=== PATIENT | male | born 1980 | race African-American/Black ===

== ENCOUNTER 2020-07-06 09:45 | Emergency (ER) | payer OTHER ==
[~2020-07-06] VITALS: Ht 182.9 cm; Wt 90.7 kg
[2020-07-06] MEDS ORDERED: ASPirin 81 mg TAB PO ONE (10:15)
[2020-07-06 10:31] LABS: Urine WBC None Seen /hpf (0 - 3)
[2020-07-06 10:38] LABS: Urine Bacteria NONE SEEN /hpf (None Seen); Urine Blood Negative /uL (Negative); Urine Specific Gravity 1.018 (1.001-1.035)
[2020-07-06 10:40] LABS: Basophils # (auto) 0.1 10 ^3/uL (0-0.2); Basophils % (auto) 2.2 % (0.0-2.0); Eosinophils # (auto) 0.1 10 ^3/uL (0-0.8); Eosinophils % (auto) 1.9 % (0.0-7.0); Hematocrit 45.5 % (41.0-53.0); Hemoglobin 15.7 g/dL (13.5-17.5); Lymphocytes % (auto) 42.1 % (10.0-50.0); Mean Corpuscular Hemoglobin 31.2 pg (28.0-32.0); Mean Corpuscular Hgb Conc. 34.5 g/dL (32.0-36.0); Mean Corpuscular Volume 90.5 fL (80.0-100.0); Monocytes # (auto) 0.4 10 ^3/uL (0-1.3); Monocytes % (auto) 9.6 % (0.0-12.0); Neutrophils # (auto) 2.1 10 ^3/uL (1.6-8.6); Neutrophils % (auto) 44.2 % (37.0-80.0); Nucleated Red Blood Cells % 0.1 %; Platelet Count (auto) 223 10^3/uL (140-450); Red Blood Cells 5.03 10^6/uL (4.5-5.90); Red Cell Distribution Width 13.6 % (11.8-14.3); White Blood Cell 4.7 10^3/uL (4.4-10.8)
[2020-07-06 11:02] LABS: Anion Gap 3 (5-15); Blood Urea Nitrogen 13 mg/dL (7-18); Calcium 8.7 mg/dL (8.5-10.1); Carbon Dioxide 29 mmol/L (21-32); Chloride 106 mmol/L (98-107); Glucose 106 mg/dL (74-106); Potassium 4.2 mmol/L (3.5-5.1); Sodium 138 mmol/L (136-145)
[2020-07-06 11:07] LABS: Alanine Aminotransferase 56 U/L (16-61); Alkaline Phosphatase 80 U/L (45-117); Aspartate Aminotransferase 34 U/L (15-37); BUN/Creatinine Ratio 11.1; Bilirubin, Total 0.6 mg/dL (0.2-1.0); GFR African American 89 mL/min; GFR Non-African American 74 mL/min
[2020-07-06] MEDS ORDERED: cloNIDine HCL 0.1 MG TAB ONE (16:47)
[2020-07-06 16:51] VITALS: BP 189/109
[2020-07-06] MEDS ORDERED: cloNIDine HCL 0.1 MG TAB PO ONE (17:00)
== END 2020-07-06 18:33 | disposition home or self-care (01) ==
LOC: ER 09:45
DX: I16.0 Hypertensive urgency (principal); F17.210 Nicotine dependence, cigarettes, uncomplicated
CPT/HCPCS: 36415; 71045; 80053; 81001; 84484; 85025

== ENCOUNTER 2020-11-07 11:51 | Emergency (ER) | payer OTHER ==
[~2020-11-07] VITALS: Ht 182.9 cm; Wt 115.7 kg
[2020-11-07 13:02] VITALS: BP 159/94
== END 2020-11-07 13:06 | disposition home or self-care (01) ==
LOC: ER 11:51
DX: I10 Essential (primary) hypertension (principal); F17.210 Nicotine dependence, cigarettes, uncomplicated; Z76.0 Encounter for issue of repeat prescription

== ENCOUNTER 2020-12-05 13:59 | Emergency (ER) | payer OTHER ==
[~2020-12-05] VITALS: Ht 185.4 cm; Wt 106.6 kg
[2020-12-05 14:05] VITALS: BP 135/92
[2020-12-05] MEDS ORDERED: HYDROcodone-ACET 10/325MG TAB PO ONE (14:45)
== END 2020-12-05 15:59 | disposition home or self-care (01) ==
LOC: ER 13:59
DX: S93.691A Other sprain of right foot, initial encounter (principal); I10 Essential (primary) hypertension; F17.210 Nicotine dependence, cigarettes, uncomplicated; X58.XXXA Exposure to other specified factors, initial encounter; Y93.67 Activity, basketball; Y92.89 Other specified places as the place of occurrence of the external cause; Y99.8 Other external cause status
CPT/HCPCS: 29515; 73610

== ENCOUNTER 2021-06-28 20:51 | Emergency (ER) | payer OTHER ==
[~2021-06-28] VITALS: Ht 182.9 cm; Wt 120.2 kg
[2021-06-28] MEDS ORDERED: cloNIDine HCL 0.1 MG TAB PO ONE (21:15)
[2021-06-28 23:50] VITALS: BP 132/89
== END 2021-06-29 00:57 | disposition home or self-care (01) ==
LOC: ER 20:51
DX: I16.0 Hypertensive urgency (principal); I10 Essential (primary) hypertension; F17.210 Nicotine dependence, cigarettes, uncomplicated

== ENCOUNTER 2023-09-22 12:52 | Emergency (ER) | payer BC, OTHER ==
[~2023-09-22] VITALS: Ht 185.4 cm; Wt 122.8 kg
[2023-09-22 13:21] VITALS: PULSE 91; RESP 16; O2SAT 99
[2023-09-22] MEDS: cloNIDine HCL 0.1 MG TAB PO ONE (13:23)
[2023-09-22 14:00] LABS: Hematocrit 48.8 % (41.0-53.0); Hemoglobin 16.9 g/dL (13.5-17.5); Mean Corpuscular Hemoglobin 30.9 pg (28.0-32.0); Mean Corpuscular Hgb Conc. 34.7 g/dL (32.0-36.0); Mean Corpuscular Volume 88.8 fL (80.0-100.0); Red Blood Cells 5.49 10^6/uL (4.5-5.90); Red Cell Distribution Width 13.7 % (11.8-14.3)
[2023-09-22 14:05] LABS: Basophils % (manual) 0 (0.0-2.0); Blast Cells 0; Eosinophils % (manual) 0 (0-7); Promyelocytes % 0; Reactive Lymphocytes 0
[2023-09-22 14:27] LABS: Alanine Aminotransferase 48 U/L (7-40); Albumin 4.6 g/dL (3.2-4.8); Alkaline Phosphatase 85 U/L (46-116); Anion Gap 6 (5-15); Aspartate Aminotransferase 31 U/L (13-40); BUN/Creatinine Ratio 6.8 (10.0-20.0); Blood Urea Nitrogen 9 mg/dL (9-23); Calcium 9.3 mg/dL (8.7-10.4); Carbon Dioxide 27 mmol/L (20-30); Chloride 102 mmol/L (98-107); Glucose 108 mg/dL (74-106); Potassium 4.8 mmol/L (3.5-5.1); Sodium 135 mmol/L (136-145)
[2023-09-22 14:28] LABS: Bilirubin, Total 0.5 mg/dL (0.2-1.0); Total Protein 8.1 g/dL (5.7-8.2)
[2023-09-22 14:47] LABS: Band Neutrophils % (manual) 14; Lymphocytes % (manual) 7 (10.0-50.0); Metamyelocytes % 6; Monocytes % (manual) 9 (0-12); Myelocytes % 9; Platelet Estimate Adequate
[2023-09-22 15:26] LABS: Urine Bacteria NONE SEEN /hpf (None Seen); Urine Blood Negative /uL (Negative); Urine Clarity Clear (Clear); Urine Color Colorless (Yellow); Urine Protein, UAD 1+ (Negative); Urine Urobilinogen Normal (Negative); Urine WBC <1 /hpf (0 - 3)
[2023-09-22] MEDS: HYDROcodone-ACET 10/325MG TAB PO ONE (15:35)
[2023-09-22] MEDS: amLODIPine BESYLATE 5 MG TAB PO ONE (16:12)
[2023-09-22] MEDS: ACETAMINOPHEN 500 MG TAB PO ONE (16:46)
[2023-09-22 17:11] VITALS: BP 112/70; PULSE 82; RESP 15; TEMP 99.9; O2SAT 97
== END 2023-09-22 17:12 | disposition home or self-care (01) ==
LOC: ER 12:52
DX: I16.0 Hypertensive urgency (principal); F17.210 Nicotine dependence, cigarettes, uncomplicated; Z79.899 Other long term (current) drug therapy
CPT/HCPCS: 36415; 70450; 71045; 80053; 81001; 85007; 85027; 93005

== ENCOUNTER 2025-02-11 04:09 | Inpatient (IN) | payer BC ==
[~2025-02-11] VITALS: Ht 182.9 cm; Wt 126.5 kg
[2025-02-11] MEDS: hydrOXYzine 25 MG TAB or CAP PO ONE (04:25)
--- NOTE | 2025-02-11 04:32 | ED.PDOC ---
History of Present Illness HPI Comments 44 y/o M presents with c/c HTN. Patient endorses on checking his blood pressure at home and noticing it being elevated at 211/111 after being unable to sleep for over the past 2x days, due to jitteriness, anxiety, and intermittent headaches. Upon arrival to ED triage, patient had a left and right blood press ure cuff measurement of 192/131 and 205/120, respectively. Patient reports on not taking his prescribed Amlodipine for over the past 4x months. He denies having any chest pain, shortness of breath, dizziness, or further associated symptoms. Chief Complaint: High Blood Pressure Time Seen by MD: 04:15 Primary Care Provider: UNKNOWN Reviewed Notes: Nurses Notes, Medications, Allergies Allergies: Coded Allergies: NO KNOWN ALLERGIES (Unverified , 07/06/20) Home Meds Active Scripts Lisinopril (Lisinopril) 20 Mg Tab, 1 TAB PO DAILY for 5 Days, #5 TAB 5 Refills Prov:ANNA RG MD 02/11/25 Information Source: Patient Mode of Arrival: Ambulatory Severity: Moderate Timing: Hours Duration: Since onset Prehospital treatment: None Review of Systems: REVIEW OF SYSTEMS: No fever, no chills, HEENT: No neck pain, no blurred vision Cardiac: Hypertension. No chest pain. No palpitations. Lungs: No shortness of breath, GI: No abdominal pain, no vomiting Musculoskeletal: No joint pain , no back pain Skin: No rash, no wound Neuro: Jittery sensation. No headache, no dizziness, no syncope Psych: Anxiety Vital Signs Vital Signs Date Time Temp Pulse Resp B/P (MAP) Pulse Ox O2 Delivery O2 Flow Rate FiO2 02/11/25 09:30 46 20 135/103 (114) 93 02/11/25 07:30 Room Air* 0 21 02/11/25 04:20 98.1 98.1 Physical Exam General: Awake, alert and oriented. No acute distress. Skin: Skin in warm, dry and intact without rashes or lesions. HEENT: The head is normocephalic and atraumatic. Conjunctivae are clear without exudates or hemorrhage. Sclera is non-icteric. Neck: Normal range of motion. No JVD. Cardiac: Regular rate Respiratory: No signs of respiratory distress. No Stridor. Extremities: 1+ pitting edema, bilaterally. Otherwise, remaining upper and lower extremities are atraumatic in appearance without deformity. Neurological: The patient is awake, alert and oriented to person, place, and time with normal speech. Speech is clear. There is no facial asymmetry. Psychiatric: Appropriate mood and affect. Good judgement and insight. Past Medical History PAST MEDICAL HISTORY: HTN Surgical History: Denies all surgeries Family History Family History: Unknown, Family hx of HTN Social History Smoker: Cigarettes Alcohol: Occasionally Drugs: Denies Drug Use Lives In: Home Was a procedure done? Was a procedure done?: No EKG EKG : Pulse Rate (adult): 55 [place]: Normal Cardiac Rhythm: NSR Block: None Hypertrophy: None ST: Normal Differential Dx Considerations may include: Hypertensive urgency, medication noncompliance X-Ray, Labs, Meds, VS Vital Signs Date Time Temp Pulse Resp B/P (MAP) Pulse Ox O2 Delivery O2 Flow Rate FiO2 02/11/25 09:30 46 20 135/103 (114) 93 02/11/25 08:00 48 02/11/25 07:30 57 17 95 Room Air* 0 02/11/25 07:30 57 17 137/85 (102) 95 02/11/25 07:10 140/101 02/11/25 06:39 55 16 98 Room Air* 0 02/11/25 06:30 55 18 153/126 (135) 96 02/11/25 05:53 157/103 02/11/25 05:42 72 12 157/103 (121) 100 02/11/25 05:25 55 02/11/25 04:57 55 02/11/25 04:26 192/131 02/11/25 04:20 98.1 62 18 192/131 (151) 97 98.1 Lab Test 02/11/25 07:47 02/11/25 05:46 02/11/25 04:47 Range/Units Troponin I High Sensitivity 59 *H 65 *H 62 *H </=54 ng/L White Blood Count 4.2 L 4.4-10.8 10^3/uL Red Blood Count 4.86 4.5-5.90 10^6/uL Hemoglobin 15.0 13.5-17.5 g/dL Hematocrit 42.9 41.0-53.0 % Mean Corpuscular Volume 88.3 80.0-100.0 fL Mean Corpuscular Hemoglobin 30.8 28.0-32.0 pg Mean Corpuscular Hemoglobin Concent 34.9 32.0-36.0 g/dL Red Cell Distribution Width 14.0 11.8-14.3 % Platelet Count 234 140-450 10^3/uL Mean Platelet Volume 8.1 6.9-10.8 fL Neutrophils (%) (Auto) 45.9 37.0-80.0 % Lymphocytes (%) (Auto) 42.1 10.0-50.0 % Monocytes (%) (Auto) 9.3 0.0-12.0 % Eosinophils (%) (Auto) 1.6 0.0-7.0 % Basophils (%) (Auto) 1.1 0.0-2.0 % Neutrophils # (Auto) 1.9 1.6-8.6 10 ^3/uL Lymphocytes # (Auto) 1.8 0.4-5.4 10 ^3/uL Monocytes # (Auto) 0.4 0-1.3 10 ^3/uL Eosinophils # (Auto) 0.1 0-0.8 10 ^3/uL Basophils # (Auto) 0 0-0.2 10 ^3/uL Nucleated Red Blood Cells 0.3 % Sodium Level 142 136-145 mmol/L Potassium Level 3.8 3.5-5.1 mmol/L Chloride Level 106 98-107 mmol/L Carbon Dioxide Level 28 20-31 mmol/L Anion Gap 8 5-15 Blood Urea Nitrogen 13 9-23 mg/dL Creatinine 1.34 H 0.700-1.30 mg/dL Glomerular Filtration Rate Calc 67 >90 mL/min BUN/Creatinine Ratio 9.7 L 10.0-20.0 Serum Glucose 107 H 74-106 mg/dL Calcium Level 9.6 8.7-10.4 mg/dL B-Type Natriuretic Peptide 12.59 0-100 pg/mL Current Medications Medications (Trade) Dose Ordered Sig/Poli Route Start Time Stop Time Status Last Admin Hydroxyzine Pamoate (Vistaril Oral) 50 mg ONCE ONCE PO 02/11/25 04:30 02/11/25 04:31 DC 02/11/25 04:25 Clonidine HCl (Catapres Tablet) 0.2 mg ONCE ONCE PO 02/11/25 04:30 02/11/25 04:31 DC 02/11/25 04:26 Lisinopril (Zestril Tablet) 10 mg ONCE ONCE PO 02/11/25 04:30 02/11/25 04:31 DC 02/11/25 05:53 Time of 1ST Reevaluation: 04:45 Reevaluation 1ST: Unchanged Patient Education/Counseling: Treatment, Need For Follow Up Family Education/Counseling: No Family Present Change of Shift?: Yes (Signed out to Dr. Jones at 6:00 a.m. pending lab results and re-evaluation) SEPSIS Sepsis Screen Physician Orders Electrocardigram (02/11/25 05:22) Electrocardigram (02/11/25 07:22) Chest Xray 1 View (02/11/25 08:25) Vital Signs Date Time Temp Pulse Resp B/P (MAP) Pulse Ox O2 Delivery O2 Flow Rate FiO2 02/11/25 09:30 46 20 135/103 (114) 93 02/11/25 08:00 48 02/11/25 07:30 57 17 95 Room Air* 0 21 02/11/25 07:30 57 17 137/85 (102) 95 02/11/25 07:10 140/101 02/11/25 06:39 55 16 98 Room Air* 0 21 02/11/25 06:30 55 18 153/126 (135) 96 02/11/25 05:53 157/103 02/11/25 05:42 72 12 157/103 (121) 100 02/11/25 05:25 55 02/11/25 04:57 55 02/11/25 04:26 192/131 02/11/25 04:20 98.1 62 18 192/131 (151) 97 98.1 Laboratory Tests Test 02/11/25 04:47 White Blood Count 4.2 10^3/uL (4.4-10.8) L Departure 1 Departure Time of Disposition: 07:15 (Patient presented with hypertension and symptoms concerning for hypertensive emergency. Patient is receiving iv blood pressure medications requiring intensive monitoring. Data: 1. I ordered and reviewed the result of at least 3 labs including a CBC, BMP, and Urinalysis. 2. I independently interpreted the following tests: CT Brain: Which appears benign. EKG which is Normal Sinus RhythmRisk:This patient has a high risk of morbidity due to further diagnostic testing or treatment and may suffer from an acute c ardiac disorder. Workup reveals hypertensive emergency and patient should be admitted for further workup. and possible expert consultation. ) Impression: Primary Impression: Hypertensive emergency Additional Impression: Elevated troponin Disposition: ADMITTED INPATIENT Admit to: Med Surg Condition: Guarded e-Prescriptions Lisinopril (Lisinopril) 20 Mg Tab 1 TAB PO DAILY for 5 Days, #5 TAB 5 Refills Prov: ANNA RG MD 02/11/25 Comments Extensive evaluation was performed in attempt to identify or rule out: (See differential diagnosis section) The following tests were ordered, and results were reviewed by me and discussed with patient: (See diagnostic results section) The following test were independently interpreted by me: EKG I reviewed and agreed with the following test results read by other providers: N/A I reviewed the following notes from the pt's past medical encounters: July 06, 2020, June 28, 2021, and September 22, 2023 encounters for hypertensive urgencies Critical Care Note Critical Care Time?: Yes Critical care comment: Hypertensive emergency Authorized and Performed by: Marisela Valera MD Total critical care time: Approximately 44 minutes Due to a high probability of clinically significant, life threatening deterioration, the patient required my highest level of preparedness to intervene emergently and I personally spent this critical care time directly and personally managing the patient. This critical care time included obtaining a history; examining the patient; pulse oximetry; ordering and review of studies; arranging urgent treatment with development of a management plan; evaluation of patient's response to treatment; frequent reassessment; and, discussions with other providers. This critical care time was performed to assess and manage the high probability of imminent, life-threatening deterioration that could result in multi-organ failure. It was exclusive of separately billable procedures and treating other patients and teaching time. Please see my other sections and the rest of the note for further information on patient assessment and treatment. Stability Stability form required: No Heart Score Heart Score: Heart Score Response (Comments) Value History N/A 0 EKG N/A 0 Age N/A 0 Risk Factors N/A 0 Troponin N/A 0 Total 0 I personally scribed for ANNA RG MD ([email or web address]) on 02/11/25 at 04:32. Electronically submitted by Landon Castano ([email or web address]). I personally scribed for ANNA RG MD ([email or web address]) on 02/11/25 at 05:25. Electronically submitted by Landon Castano ([email or web address]). ANNA RG MD Feb 11, 2025 04:32 MARISELA VALERA MD Feb 11, 2025 07:19
--- NOTE | 2025-02-11 04:58 | ECG ---
[facility] Test Date: 2025-02-11 Test Time: 04:57:18 Pat Name: JARED VALDIVIA Department: ED Room: 0216T Gender: M [employer]: JAKE : 1980 Requested By: ANNA RG Order Number: [id number] Reading MD: Judson Martinez Measurements Intervals [place]amond Rate: 55 P: 22 AL: 182 QRS: 46 QRSD: 98 T: -12 QT: 431 QTc: 413 Interpretive Statements Sinus rhythm RSR' in V1 or V2, right VCD or RVH Borderline T abnormalities, inferior leads Electronically Signed On 02-13-2025 19:00:18 PDT by Judson Martinez Please click the below link to view image of tracing.
[2025-02-11 05:15] LABS: Hematocrit 42.9 % (41.0-53.0); Hemoglobin 15.0 g/dL (13.5-17.5); Mean Corpuscular Hemoglobin 30.8 pg (28.0-32.0); Mean Corpuscular Volume 88.3 fL (80.0-100.0); Nucleated Red Blood Cells % 0.3 %
[2025-02-11 05:23] LABS: Chloride 106 mmol/L (98-107); Potassium 3.8 mmol/L (3.5-5.1); Sodium 142 mmol/L (136-145)
[2025-02-11 05:24] LABS: Anion Gap 8 (5-15); Carbon Dioxide 28 mmol/L (20-31)
[2025-02-11 05:25] LABS: Calcium 9.6 mg/dL (8.7-10.4)
[2025-02-11 05:30] LABS: BUN/Creatinine Ratio 9.7 (10.0-20.0); Blood Urea Nitrogen 13 mg/dL (9-23)
[2025-02-11] MEDS ORDERED: LISI20TA56 PO (05:51)
[2025-02-11] MEDS: LISINOPRIL 5 MG TAB PO ONE (05:53)
[2025-02-11 05:54] LABS: Glucose 107 mg/dL (74-106)
[2025-02-11 06:39] VITALS: PULSE 55; RESP 16; O2SAT 98
[2025-02-11 07:30] VITALS: PULSE 57; RESP 17; O2SAT 95
--- NOTE | 2025-02-11 09:01 | DVH ---
CHEST RADIOGRAPH Indication: Chest Pain Technique: Single frontal view of the chest was obtained COMPARISON: XY CHEST PORTABLE on DOS: 09/22/23, CHEST PORTABLE on DOS: 07/06/20 FINDINGS: Lines and Tubes: None Lungs: Hazy opacity in the right lower lobe. Pleura: No effusion. No pneumothorax. Cardiomediastinal contours: Unremarkable Bones: Unremarkable IMPRESSION: Hazy opacity in the right lower lobe. This may represent atelectasis or developing pneumonia.
[2025-02-11] MEDS ORDERED: ONDANSETRON HCL 4 MG/2 ML VIAL IV PRN (10:15)
[2025-02-11] MEDS ORDERED: hydrOXYzine HCL 10 MG TAB PO PRN (10:15)
[2025-02-11] MEDS ORDERED: MORPHINE SULFATE INJ 2 MG/ml SYRG IV PRN (10:15)
[2025-02-11] MEDS ORDERED: DOCUSATE SOD 100 MG CAP PO PRN (10:15)
[2025-02-11] MEDS ORDERED: NITROGLYCERIN 0.4 MG SL TAB SL PRN (10:15)
--- NOTE | 2025-02-11 10:42 | DVHHP2 ---
History of Present Illness Reason for Visit: Hypertension History of Present Illness Kailash Diego is a 44-year-old male with past medical history of hypertension and anxiety, who came to the hospital due to elevated blood pressure. Patient states he was on amlodipine for his blood pressure but he stopped it due to feeling dizzy. He states since being off the medication he has been experiencing daily headaches and dizziness. Dizziness could be due to uncontrolled hypertension, will try to control blood pressure and see if that helps alleviate his headaches and dizziness. Cardiovascular: HTN Psych: Anxiety Past Surgical History: Other (right knee surgery) Smoke: <1 pack per day ALCOHOL: occassional Drugs: None Lives: with Family Domestic Violence: Neg Review of Systems Constitutional: Yes: Other (dizziness, headache); No: Fever, Chills, Sweats, Weakness, Malaise Eyes: No: Pain, Vision change, Conjunctivae inflammation, Eyelid inflammation, Other, Redness ENT: No: Ear pain, Ear discharge, Nose pain, Nose discharge, Nose congestion, Mouth pain, Mouth swelling, Throat pain, Throat swelling, Other Respiratory: No: Cough, Dry, Shortness of breath, SOB with excertion, Wheezing, Hemoptysis, Pleuritic Pain, Sputum, Wheezing, Other Cardiovascular: Other (Hypertension); No: Chest Pain, Palpitations, Orthopnea, Paroxysmal Noc. Dyspnea, Edema, Lt Headedness Gastrointestinal: No: Nausea, Vomiting, Abdominal Pain, Diarrhea, Constipation, Melena, Hematochezia, Other Genitourinary: No Dysuria, No Frequency, No Incontinence, No Hematuria, No Retention, No Other Musculoskeletal: No: other, neck pain, shoulder pain, arm pain, back pain, hand pain, leg pain, foot pain Skin: No: Rash, Lesions, Jaundice, Bruising, Other Neurological: No: Weakness, Numbness, Incoordination, Change in speech, Confusion, Seizures, Other Allergies: Coded Allergies: NO KNOWN ALLERGIES (Unverified , 07/06/20) Exam Vital Signs Vital Signs Date Time Temp Pulse Resp B/P (MAP) Pulse Ox O2 Delivery O2 Flow Rate FiO2 02/11/25 09:30 46 20 135/103 (114) 93 02/11/25 07:30 Room Air* 0 21 02/11/25 04:20 98.1 98.1 General Appearance: Alert, Oriented X3, Cooperative, mild distress HEENT: Atraumatic, PERRLA Respiratory: Clear to auscultation, Normal air movement Cardiovascular: Normal S1, Normal S2, Other (SB-SR) Abdominal: Normal bowel sounds, Soft, No tenderness, No hepatospenomegaly Extremities: No clubbing, No cyanosis, No edema, Normal pulses, No tenderness/swelling Skin: No rashes, No breakdown, No significant lesion Neuro: Normal gait, Normal speech, Strength at 5/5 X4 ext Psych/Mental Status: Mental status NL, Mood NL Labs/Xrays Labs Test 02/11/25 07:47 02/11/25 04:47 Range/Units Troponin I High Sensitivity 59 *H </=54 ng/L White Blood Count 4.2 L 4.4-10.8 10^3/uL Red Blood Count 4.86 4.5-5.90 10^6/uL Hemoglobin 15.0 13.5-17.5 g/dL Hematocrit 42.9 41.0-53.0 % Mean Corpuscular Volume 88.3 80.0-100.0 fL Mean Corpuscular Hemoglobin 30.8 28.0-32.0 pg Mean Corpuscular Hemoglobin Concent 34.9 32.0-36.0 g/dL Red Cell Distribution Width 14.0 11.8-14.3 % Platelet Count 234 140-450 10^3/uL Mean Platelet Volume 8.1 6.9-10.8 fL Neutrophils (%) (Auto) 45.9 37.0-80.0 % Lymphocytes (%) (Auto) 42.1 10.0-50.0 % Monocytes (%) (Auto) 9.3 0.0-12.0 % Eosinophils (%) (Auto) 1.6 0.0-7.0 % Basophils (%) (Auto) 1.1 0.0-2.0 % Neutrophils # (Auto) 1.9 1.6-8.6 10 ^3/uL Lymphocytes # (Auto) 1.8 0.4-5.4 10 ^3/uL Monocytes # (Auto) 0.4 0-1.3 10 ^3/uL Eosinophils # (Auto) 0.1 0-0.8 10 ^3/uL Basophils # (Auto) 0 0-0.2 10 ^3/uL Nucleated Red Blood Cells 0.3 % Sodium Level 142 136-145 mmol/L Potassium Level 3.8 3.5-5.1 mmol/L Chloride Level 106 98-107 mmol/L Carbon Dioxide Level 28 20-31 mmol/L Anion Gap 8 5-15 Blood Urea Nitrogen 13 9-23 mg/dL Creatinine 1.34 H 0.700-1.30 mg/dL Glomerular Filtration Rate Calc 67 >90 mL/min BUN/Creatinine Ratio 9.7 L 10.0-20.0 Serum Glucose 107 H 74-106 mg/dL Calcium Level 9.6 8.7-10.4 mg/dL B-Type Natriuretic Peptide 12.59 0-100 pg/mL CHEST RADIOGRAPH FINDINGS: Lines and Tubes: None Lungs: Hazy opacity in the right lower lobe. Pleura: No effusion. No pneumothorax. Cardiomediastinal contours: Unremarkable Bones: Unremarkable IMPRESSION: Hazy opacity in the right lower lobe. This may represent atelectasis or developing pneumonia. Assessment/Plan Assessment/Plan Assessment: Hypertensive emergency, Bradycardia, Elevated troponin, Dizziness, Intractable headache, Plan: Admit to Tele, ECHO, Antihypertensives, PRN antihypertensives, Consider cardiology consult if dizziness does not improve with BP control, Plan discussed with: Patient My Orders Orders - SHELLY ROQUE ASSESSMENT DIRECTOR Procedure Category Date Status Time Chest Xray 1 View XY 02/11/25 Resulted 08:25 Admit ADMIT 02/11/25 Transmitted 10:02 Code Status CODE 02/11/25 Transmitted 10:02 2 Gm Sodium Diet DIET 02/11/25 Transmitted Lunch Sodium Chloride Lock PHA 02/11/25 Transmitted (Saline Lock Ns) 14:00 Hydrocodone-Acet PHA 02/11/25 Transmitted 5/325mg Tab ([place] 10:15 Ondansetron Hcl PHA 02/11/25 Transmitted (Zofran) 10:15 Docusate Sodium PHA 02/11/25 Transmitted Capsule (Colace 10:15 Complete Blood Count LAB 02/12/25 Verified 04:00 Comprehensive LAB 02/12/25 Verified Metabolic Panel 04:00 Echo 2d Mode Cardiac US 02/11/25 Transmitted DOP 10:02 Condition: Serious NATHAN 02/11/25 Transmitted 10:02 Acetaminophen Tablet PHA 02/11/25 Transmitted (Tylenol Tablet) 10:15 Nitroglycerin PHA 02/11/25 Transmitted Sublingual (Ntrostat 10:15 Morphine Sulfate PHA 02/11/25 Transmitted Injection 10:15 Stat Ekg For Chest [facility] 02/11/25 Transmitted Pain 10:02 Notify Of Changes [facility] 02/11/25 Transmitted From Base 10:02 Assembler Corncob Pipes For [facility] 02/11/25 Transmitted 24 Hours 10:02 Emergency Dysrhythmia [facility] 02/11/25 Transmitted Protocol 10:02 Rhythm Strips Once [facility] 02/11/25 Transmitted Every Shift 10:02 Oxygen By Nasal RT 02/11/25 Transmitted Cannula 10:02 Nifedipine Er PHA 02/12/25 Transmitted (Procardia Xl 10:00 Nifedipine Er PHA 02/11/25 Transmitted (Procardia Xl 10:15 Hydralazine Injection [facility] 02/11/25 Transmitted (Apresoline Inject 10:15 Date of Service: Feb 11, 2025 Billing Provider: SHELLY ROQUE Common Visit Codes: [id number] INP/OBS CARE (MOD) SHELLY ROQUE Feb 11, 2025 10:42
[2025-02-11] MEDS: SODIUM CHLOR 0.9% PF (SALINE LOCK) 10ML VIAL/SYR IV SCH (14:06)
[2025-02-11 19:34] VITALS: PULSE 65; RESP 18; O2SAT 98
[2025-02-11 22:10] VITALS: BP 154/100; PULSE 67; RESP 20; TEMP 98.3; O2SAT 98
[2025-02-11 22:15] VITALS: PULSE 67; RESP 20; O2SAT 98
[2025-02-11] MEDS: hydrALAZINE HCL 20 MG/ML VL IV PRN (22:40)
[2025-02-12] VITALS (9 sets, daily range): BP systolic 138–172; BP diastolic 81–110; PULSE 62–100; RESP 18–20; TEMP 97–97.6; O2SAT 97–99
[2025-02-12] MEDS: ACETAMINOPHEN 325 MG TAB PO PRN (00:15)
[2025-02-12] MEDS: HYDROcodone-ACET 5/325MG TAB PO PRN (05:30)
[2025-02-12 06:23] LABS: Hematocrit 45.3 % (41.0-53.0); Hemoglobin 16.1 g/dL (13.5-17.5); Mean Corpuscular Hemoglobin 31.2 pg (28.0-32.0); Mean Corpuscular Volume 87.9 fL (80.0-100.0); Nucleated Red Blood Cells % 0.9 %
[2025-02-12 06:37] LABS: Alkaline Phosphatase 70 U/L (46-116); Anion Gap 10 (5-15); BUN/Creatinine Ratio 10.0 (10.0-20.0); Blood Urea Nitrogen 13 mg/dL (9-23); Calcium 9.2 mg/dL (8.7-10.4); Carbon Dioxide 26 mmol/L (20-31); Chloride 105 mmol/L (98-107); Glucose 104 mg/dL (74-106); Potassium 4.2 mmol/L (3.5-5.1); Sodium 141 mmol/L (136-145); Total Protein 7.4 g/dL (5.7-8.2)
[2025-02-12 06:38] LABS: Albumin 4.4 g/dL (3.2-4.8); Bilirubin, Total 0.4 mg/dL (0.2-1.0)
[2025-02-12 06:39] LABS: Alanine Aminotransferase 40 U/L (7-40)
[2025-02-12] MEDS: cefTRIAXone 1GM/50ML D5W 50 ML IV ONE (13:15)
--- NOTE | 2025-02-12 13:20 | DVHPN2 ---
Reviewed: Care Plan, H&P, Labs, Medications, Previous Orders, Radiology Changes from previous H/P or p: No Changes Eyes: No Pain, No Vision change, No Conjunctivae inflammation, No Eyelid inflammation, No Other, No Redness ENT: No Ear pain, No Ear discharge, No Nose pain, No Nose discharge, No Nose congestion, No Mouth pain, No Mouth swelling, No Throat pain, No Throat swelling, No Other Cardiovascular: No Chest Pain, No Palpitations, No Orthopnea, No Paroxysmal Noc. Dyspnea, No Edema, No Lt Headedness; Other (Hypertension) Respiratory: No Cough, No Dry, No Shortness of breath, No SOB with excertion, No Wheezing, No Hemoptysis, No Pleuritic Pain, No Sputum, No Other Gastrointestinal: No Nausea, No Vomiting, No Abdominal Pain, No Diarrhea, No Constipation, No Melena, No Hematochezia, No Other Genitourinary: No Dysuria, No Frequency, No Incontinence, No Hematuria, No Retention, No Other Musculoskeletal: No other, No neck pain, No shoulder pain, No arm pain, No back pain, No hand pain, No leg pain, No foot pain Skin: No Rash, No Lesions, No Jaundice, No Bruising, No Other Objective Vitals Vital Signs Date Time Temp Pulse Resp B/P (MAP) Pulse Ox O2 Delivery O2 Flow Rate FiO2 02/12/25 12:39 164/102 02/12/25 08:33 97.3 69 18 99 97.3 02/12/25 08:00 Room Air* 0 21 Intake/Output Intake and Output 02/12/25 07:00 Intake Total 300 ml Balance 300 ml Intake Oral 300 ml # Voids 1 Medications Current Medications Medications Dose Ordered Sig/Poli Route Start Time Stop Time Status Last Admin Dose Admin Sodium Chloride 10 ml Q8HR IV 02/11/25 14:00 02/12/25 05:22 10 ML Acetaminophen/ Hydrocodone Bitart 1 tab Q4HP PRN PO 02/11/25 10:15 02/12/25 05:30 1 TAB Ondansetron HCl 4 mg Q4HP PRN IV 02/11/25 10:15 Docusate Sodium 100 mg BIDPRN PRN PO 02/11/25 10:15 Acetaminophen 650 mg Q6HP PRN PO 02/11/25 10:15 02/12/25 00:15 650 MG Nitroglycerin 0.4 mg Q5MINP PRN SL 02/11/25 10:15 Morphine Sulfate 2 mg Q30M PRN IV 02/11/25 10:15 Nifedipine 60 mg DAILY PO 02/12/25 10:00 02/12/25 09:40 60 MG Hydralazine HCl 10 mg Q6HP PRN IV 02/11/25 10:15 02/12/25 12:39 10 MG Hydroxyzine HCl 20 mg Q6HP PRN PO 02/11/25 10:15 Ceftriaxone Sodium 50 ml @ 100 mls/hr DAILY@ IV 02/13/25 09:00 UNV Doxycycline Monohydrate 100 mg Q12HR PO 02/12/25 22:00 UNV Laboratory Results Laboratory Tests 02/12/25 05:23 Chemistry Test 02/12/25 05:23 Albumin 4.4 g/dL (3.2-4.8) Calcium Level 9.2 mg/dL (8.7-10.4) Total Protein 7.4 g/dL (5.7-8.2) LFT Test 02/12/25 05:23 Alanine Aminotransferase (ALT) 40 U/L (7-40) Alkaline Phosphatase 70 U/L (46-116) Aspartate Amino Transferase (AST) 33 U/L (13-40) Total Bilirubin 0.4 mg/dL (0.2-1.0) Labs and/or images reviewed: Labs reviewed by me, Image(s) reviewed by me Assessment/Plan Assessment/Plan Hypertensive emergency: Blood pressure 192/131, Procardia, cardiology consult for Dr. Martinez, check urine drug screen Bradycardia with heart rate of 50s, consult for Cardiology Slightly elevated troponin 62 secondary to uncontrolled hypertension Possible community-acquired right lower lobe pneumonia Gram-positive versus Gram-negative: Rocephin doxycycline Man[place] test pending Rapid flu test pending Plan discussed with: Patient My Orders Orders - RAGHAV LANCE MD Procedure Category Date Status Time Covid19 Antigen Sadie LAB 02/12/25 Logged Rapid Influenza A&B LAB 02/12/25 Logged 13:11 Drug Screen LAB 02/12/25 Logged 13:11 Ceftriaxone 1gm/50ml PHA 02/13/25 Logged D5w (Rocephin) 09:00 Ceftriaxone 1gm/50ml PHA 02/12/25 Logged D5w (Rocephin) 13:15 Doxycycline Tablet PHA 02/12/25 Logged (Vibramycin Tablet) 22:00 * Cardiology Consult CONS 02/12/25 Verified 13:12 Date of Service: Feb 12, 2025 Billing Provider: RAGHAV LANCE MD Common Visit Codes: [id number] INP/OBS CARE(HIGH) RAGHAV LANCE MD Feb 12, 2025 13:20
[2025-02-12] MEDS: DOXYCYCLINE 100 MG TAB/CAP PO SCH (13:25)
--- NOTE | 2025-02-12 13:39 | DVHINCON2 ---
Date Seen: Feb 12, 2025 Referring Physician MD Bonifacio Reason for Consultation Accelerated hypertension, bradycardia History of Present Illness This is a 44-year-old man who presented to the emergency room with a chief complaint of uncontrolled blood pressure. The patient reports his blood p ressures were 200s/100s mmHg at home and associated with AGUIRRE, dizziness, and insomnia prompting him to seek further medical attention. Upon arrival to the emergency room he was found with a blood pressure of 205/120 mmHg with latest documented as 164/102 mmHg. Per patient, he stopped his amlodipine therapy about 5 months ago secondary to HAs which he endorsed to be secondary to the CCB. He did not follow-up with a PCP neither administered any other antihypertensives. During admission he was also noted to have a resting heart rate as low as 47 bpm without evidence of pauses or atrioventricular blocks. He underwent a 12 lead electrocardiogram revealing a sinus rhythm with nonspecific inferior T-wave changes. Troponin levels peaked at 65 ng/L. Only medical history reported is hypertension. Past Medical History Past medical history reviewed. No other significant than mentioned above. Past Surgical History Right knee Family History: Hypertension G8 MOTHER Family History Family history reviewed. Social History Denies the use of illicit drugs. Admits to occasional alcohol use and occasional tobacco use. Allergies: Coded Allergies: NO KNOWN ALLERGIES (Unverified , 07/06/20) Home Meds No Active Prescriptions or Reported Meds Home Meds Denies any active home medications. Current Medications Current Medications Medications (Trade) Dose Ordered Sig/Poli Route PRN Reason Start Time Stop Time Status Last Admin Sodium Chloride (Saline Lock Ns) 10 ml Q8HR IV 02/11/25 14:00 02/12/25 05:22 Nifedipine (Procardia Xl (Time-Release)) 60 mg DAILY PO 02/12/25 10:00 02/12/25 09:40 Ceftriaxone Sodium 50 ml @ 100 mls/hr DAILY@09 IV 02/13/25 09:00 Doxycycline Monohydrate (Vibramycin Tablet) 100 mg Q12HR PO 02/12/25 13:25 Review of Systems Constitutional: Insomnia Ears, Nose, & Throat: No symptom reported Eyes: No symptom reported Neurological: AGUIRRE, dizziness Pulmonary/Respiratory: No symptom reported Cardiovascular: No symptom reported Gastrointestinal: No symptom reported Genitourinary: No symptom reported Musculoskeletal: No symptom reported Skin: No symptom reported Psychiatric: No symptom reported Endocrine: No symptom reported Hemotologic/Lymphatic: No symptom reported Vital Signs Vital Signs Date Time Temp Pulse Resp B/P (MAP) Pulse Ox O2 Delivery O2 Flow Rate FiO2 02/12/25 12:39 164/102 02/12/25 08:33 97.3 69 18 99 97.3 02/12/25 08:00 Room Air* 0 21 Physical Exam General Appearance: Cooperative. Well developed. Obese. In no acute distress Head Exam: Normal inspection Neck Exam: Normal inspection. Non-tender. Normal alignment Pulmonary/Respiratory: Chest non-tender. Clear bilateral breath sounds Cardiovascular/Chest: Regular rate and rhythm. S1, S2. Sinus rhythm with nonspecific inferior T-wave changes. No murmurs. No JVD. Peripheral Pulses: 2+ Radial (R). 2+ Radial (L). 2+ Pedal (R). 2+ Pedal (L) Abdominal Exam: Normal bowel sounds. Soft. Nontender. No hepatospenomegaly. No masses Ankle Exam: Negative ankle edema Lower extremities: Negative lower extremity edema Neuro/Mental Status: A&O x4. Coherent Thoughts/Psych: Normal thought pattern. Appropriate mood and affect. Good judgement and insight Appearance: In no acute distress Skin Exam: Normal inspection. Normal color. Warm. Dry Labs/Diagnostic Data Labs Test 02/12/25 05:23 02/11/25 07:47 02/11/25 04:47 Range/Units White Blood Count 5.0 4.4-10.8 10^3/uL Red Blood Count 5.15 4.5-5.90 10^6/uL Hemoglobin 16.1 13.5-17.5 g/dL Hematocrit 45.3 41.0-53.0 % Mean Corpuscular Volume 87.9 80.0-100.0 fL Mean Corpuscular Hemoglobin 31.2 28.0-32.0 pg Mean Corpuscular Hemoglobin Concent 35.5 32.0-36.0 g/dL Red Cell Distribution Width 14.0 11.8-14.3 % Platelet Count 251 140-450 10^3/uL Mean Platelet Volume 8.2 6.9-10.8 fL Neutrophils (%) (Auto) 49.8 37.0-80.0 % Lymphocytes (%) (Auto) 39.8 10.0-50.0 % Monocytes (%) (Auto) 8.5 0.0-12.0 % Eosinophils (%) (Auto) 1.1 0.0-7.0 % Basophils (%) (Auto) 0.8 0.0-2.0 % Neutrophils # (Auto) 2.5 1.6-8.6 10 ^3/uL Lymphocytes # (Auto) 2.0 0.4-5.4 10 ^3/uL Monocytes # (Auto) 0.4 0-1.3 10 ^3/uL Eosinophils # (Auto) 0.1 0-0.8 10 ^3/uL Basophils # (Auto) 0 0-0.2 10 ^3/uL Nucleated Red Blood Cells 0.9 % Sodium Level 141 136-145 mmol/L Potassium Level 4.2 3.5-5.1 mmol/L Chloride Level 105 98-107 mmol/L Carbon Dioxide Level 26 20-31 mmol/L Anion Gap 10 5-15 Blood Urea Nitrogen 13 9-23 mg/dL Creatinine 1.30 0.700-1.30 mg/dL Glomerular Filtration Rate Calc 70 >90 mL/min BUN/Creatinine Ratio 10.0 10.0-20.0 Serum Glucose 104 74-106 mg/dL Calcium Level 9.2 8.7-10.4 mg/dL Total Bilirubin 0.4 0.2-1.0 mg/dL Aspartate Amino Transferase (AST) 33 13-40 U/L Alanine Aminotransferase (ALT) 40 7-40 U/L Alkaline Phosphatase 70 46-116 U/L Total Protein 7.4 5.7-8.2 g/dL Albumin 4.4 3.2-4.8 g/dL Troponin I High Sensitivity 59 *H </=54 ng/L B-Type Natriuretic Peptide 12.59 0-100 pg/mL Assessment Hypertensive emergency NSTEMI, likely type 2 secondary to above Sinus bradycardia in the setting of clonidine therapy Suboptimal medical therapy Alcohol/tobacco use Obesity Plan/Recommendation (Dr. Martinez) Continue aggressive blood pressure control for a target SBP <140 mmHg. Nifedipine uptitrated to 90 mg, add thiazide diuretic. If unable to control BP with aforementioned medications, consider adding scheduled hydralazine p.o. which is currently PRN. He also presents with resting sinus bradycardia without evidence of sinus pauses or atrioventricular blocks. At the same time, the patient was medicated with clonidine p.o. Dizziness and AGUIRRE most likely secondary to uncontrolled BP. Consider an outpatient event monitor and head CT if deemed necessary. There is no further cardiac work-up indicated at this time. Signing off. Thank you for allowing us to participate in this patient's care. This medical document was created using an electronic medical record system with voice recognition software and computerized dictation system. Although this document has been carefully reviewed, there might still be some phonetic and typographical errors. Occasional wrong-word or ``sound-alike substitutions may have occurred due to the inherent limitations of voice recognition software. These areas are purely typographical due to imperfections of the software programs and do not reflect any compromise in the patient's medical care. Please read the chart carefully and recognize, using context, where these substitutions have occurred. Plan discussed with: Patient, Other NYHA 2 Physical activity limitations: NA Date of Service: Feb 12, 2025 Billing Provider: SOLOMON EDMONDS Cardiology Common Codes: [id number] INP/OBS CARE (High) SOLOMON EDMONDS Feb 12, 2025 13:39
[2025-02-12] MEDS: CHLORTHALIDONE 25 MG TAB PO ONE (13:45)
[2025-02-12 14:05] LABS: Triglycerides 94.0 mg/dL (< 150)
[2025-02-12 14:06] LABS: Magnesium 2.1 mg/dL (1.6-2.6)
[2025-02-12 14:07] LABS: Cholesterol 168.0 mg/dL (< 200); HDL Cholesterol 54.0 mg/dL (40-59)
[2025-02-12 16:01] LABS: Opiate Scree,Urine Neg (NEGATIVE)
[2025-02-12 16:02] LABS: Amphetamine Screen, Urine Neg (NEGATIVE); Barbiturate Scree,Urine Neg (NEGATIVE); Benzodiazephine Screen, Urine Neg (NEGATIVE); Cannabinoid Screen, Urine Neg (NEGATIVE); Cocaine Screen, Urine Neg (NEGATIVE); Phencyclidine Screen, Urine Neg (NEGATIVE)
--- NOTE | 2025-02-12 16:47 | DVHSR ---
APPROVED REPORT EXAM: Two-dimensional and M-mode echocardiogram with Doppler and color Doppler. Blood Pressure: 135/103 mmHg INDICATION Hypertension Hypertensive emergency, bradycardia, LV function RISK FACTORS Height: 70, Weight: 275 DIMENSIONS LVDd4.8 (3.8-5.7cm)LA (2D)4.7 (1.9-4.0cm)Aortic Root4.1 (2.0-3.7cm) LVDs2.9 (2.5-4.0cm)LA (MM) (1.9-4.0cm)Aortic Cusp Exc2.1 (1.5-2.0cm) EF (%) 70.0 (55-70%)Rt. Atrium4.6 (1.9-4.0cm)Asc. Aorta cm Mitral Valve MitralMitral Stenosis E wave0.65m/sMV Mean GR.mmHg A wave0.61m/sMV Peak GR.mmHg E/A ratio1.12D MVAcm2 DECEL [id number] 1/2 [id number] IVRTmsDop MVA3.87cm2 Aortic Valve Aortic ValveAortic Stenosis V10.66m/Mary Mean GR.4mmHg V21.19m/Mayr Peak GR.6mmHg LVOT Diameter2.2 (1.8-2.4cm)Doppler AVA2.11cm2 Pulmonic Valve V20.78m/s Tricuspid Valve TR Velocity1.87m/s [id number] Other Information Quality : Technically LimitedRhythm : Conclusion LVEF 60-65%, moderate LVH Mild right ventricle dilation, normal function Mild left and right atrial dilation
[2025-02-12] MEDS: ZOLPIDEM TARTRATE 5 MG TAB PO PRN (21:32)
[2025-02-13 01:00] VITALS: BP 155/97; PULSE 101; RESP 19; TEMP 97.8; O2SAT 97
[2025-02-13 05:00] VITALS: BP 145/96; PULSE 90; RESP 18; TEMP 97.8; O2SAT 99
[2025-02-13 08:00] VITALS: PULSE 104; RESP 17
[2025-02-13] MEDS ORDERED: NIFE1TAB30 PO (08:07)
[2025-02-13] MEDS ORDERED: AZIT500T66 PO (08:07)
[2025-02-13] MEDS ORDERED: CHLO25TA2 PO (08:07)
--- NOTE | 2025-02-13 08:11 | DVHPN2 ---
Reviewed: Care Plan, H&P, Labs, Medications, Previous Orders, Radiology Changes from previous H/P or p: No Changes Eyes: No Pain, No Vision change, No Conjunctivae inflammation, No Eyelid inflammation, No Other, No Redness ENT: No Ear pain, No Ear discharge, No Nose pain, No Nose discharge, No Nose congestion, No Mouth pain, No Mouth swelling, No Throat pain, No Throat swelling, No Other Cardiovascular: No Chest Pain, No Palpitations, No Orthopnea, No Paroxysmal Noc. Dyspnea, No Edema, No Lt Headedness; Other (Hypertension) Respiratory: No Cough, No Dry, No Shortness of breath, No SOB with excertion, No Wheezing, No Hemoptysis, No Pleuritic Pain, No Sputum, No Other Gastrointestinal: No Nausea, No Vomiting, No Abdominal Pain, No Diarrhea, No Constipation, No Melena, No Hematochezia, No Other Genitourinary: No Dysuria, No Frequency, No Incontinence, No Hematuria, No Retention, No Other Musculoskeletal: No other, No neck pain, No shoulder pain, No arm pain, No back pain, No hand pain, No leg pain, No foot pain Skin: No Rash, No Lesions, No Jaundice, No Bruising, No Other Objective Vitals Vital Signs Date Time Temp Pulse Resp B/P (MAP) Pulse Ox O2 Delivery O2 Flow Rate FiO2 02/13/25 05:00 97.8 90 18 145/96 (112) 99 97.8 02/12/25 20:00 Room Air* 0 21 Intake/Output Intake and Output 02/13/25 07:00 Intake Total 1175 ml Balance 1175 ml Intake Oral 1125 ml IV Total 50 ml # Voids 3 Medications Current Medications Medications Dose Ordered Sig/Poli Route Start Time Stop Time Status Last Admin Dose Admin Sodium Chloride 10 ml Q8HR IV 02/11/25 14:00 02/13/25 06:16 10 ML Acetaminophen/ Hydrocodone Bitart 1 tab Q4HP PRN PO 02/11/25 10:15 02/12/25 05:30 1 TAB Ondansetron HCl 4 mg Q4HP PRN IV 02/11/25 10:15 Docusate Sodium 100 mg BIDPRN PRN PO 02/11/25 10:15 Acetaminophen 650 mg Q6HP PRN PO 02/11/25 10:15 02/12/25 00:15 650 MG Nitroglycerin 0.4 mg Q5MINP PRN SL 02/11/25 10:15 Morphine Sulfate 2 mg Q30M PRN IV 02/11/25 10:15 Hydralazine HCl 10 mg Q6HP PRN IV 02/11/25 10:15 02/12/25 20:23 10 MG Hydroxyzine HCl 20 mg Q6HP PRN PO 02/11/25 10:15 Ceftriaxone Sodium 50 ml @ 100 mls/hr DAILY@09 IV 02/13/25 09:00 Doxycycline Monohydrate 100 mg Q12HR PO 02/12/25 13:25 02/12/25 21:32 100 MG Nifedipine 90 mg DAILY PO 02/13/25 10:00 Chlorthalidone 25 mg DAILY@BREAKFAST PO 02/13/25 08:00 Zolpidem Tartrate 10 mg HSPRN PRN PO 02/12/25 22:00 02/12/25 21:32 10 MG Laboratory Results Laboratory Tests 02/12/25 05:23 Labs and/or images reviewed: Labs reviewed by me, Image(s) reviewed by me Assessment/Plan Assessment/Plan Hypertensive emergency: Blood pressure 192/131, Procardia, cardiology consult for Dr. Martinez appreciated placed on Procardia and chlorthalidone Bradycardia with heart rate of 50s, consult for Cardiology appreciated advised outpatient monitoring Slightly elevated troponin 62 secondary to uncontrolled hypertension Possible community-acquired right lower lobe pneumonia Gram-positive versus Gram-negative: Rocephin doxycycline Patient feels better stable vital signs and willing to go home Plan discussed with: Patient My Orders Orders - RAGHAV LANCE MD Procedure Category Date Status Time Covid19 Antigen Sadie LAB 02/12/25 Logged Rapid Influenza A&B LAB 02/12/25 Logged 13:11 Ceftriaxone 1gm/50ml PHA 02/13/25 In Process D5w (Rocephin) 09:00 Doxycycline Tablet PHA 02/12/25 In Process (Vibramycin Tablet) 13:25 * Cardiology Consult CONS 02/12/25 Transmitted 13:12 Zolpidem Tartrate PHA 02/12/25 In Process (Ambien) 22:00 Date of Service: Feb 13, 2025 Billing Provider: RAGHAV LANCE MD Common Visit Codes: [id number] INP/OBS CARE(HIGH) RAGHAV LANCE MD Feb 13, 2025 08:11
--- NOTE | 2025-02-13 08:14 | DVHDS2 ---
Discharge Summary Date of Admission Feb 11, 2025 at 10:02 Date of Discharge: Feb 13, 2025 Admitting Diagnosis Elevated blood pressure Wounds: None Labs/Diagnostic Data: Laboratory Results Test 02/12/25 15:10 02/12/25 05:23 02/11/25 07:47 02/11/25 04:47 Urine Opiates Screen Neg (NEGATIVE) Urine Fentanyl Screen Neg (NEGATIVE) Urine Barbiturates Screen Neg (NEGATIVE) Urine Phencyclidine Screen Neg (NEGATIVE) Urine Amphetamines Screen Neg (NEGATIVE) Urine Benzodiazepines Screen Neg (NEGATIVE) Urine Cocaine Screen Neg (NEGATIVE) Urine Cannabinoids Screen Neg (NEGATIVE) White Blood Count 5.0 10^3/uL (4.4-10.8) Red Blood Count 5.15 10^6/uL (4.5-5.90) Hemoglobin 16.1 g/dL (13.5-17.5) Hematocrit 45.3 % (41.0-53.0) Mean Corpuscular Volume 87.9 fL (80.0-100.0) Mean Corpuscular Hemoglobin 31.2 pg (28.0-32.0) Mean Corpuscular Hemoglobin Concent 35.5 g/dL (32.0-36.0) Red Cell Distribution Width 14.0 % (11.8-14.3) Platelet Count 251 10^3/uL (140-450) Mean Platelet Volume 8.2 fL (6.9-10.8) Neutrophils (%) (Auto) 49.8 % (37.0-80.0) Lymphocytes (%) (Auto) 39.8 % (10.0-50.0) Monocytes (%) (Auto) 8.5 % (0.0-12.0) Eosinophils (%) (Auto) 1.1 % (0.0-7.0) Basophils (%) (Auto) 0.8 % (0.0-2.0) Neutrophils # (Auto) 2.5 10 ^3/uL (1.6-8.6) Lymphocytes # (Auto) 2.0 10 ^3/uL (0.4-5.4) Monocytes # (Auto) 0.4 10 ^3/uL (0-1.3) Eosinophils # (Auto) 0.1 10 ^3/uL (0-0.8) Basophils # (Auto) 0 10 ^3/uL (0-0.2) Nucleated Red Blood Cells 0.9 % Sodium Level 141 mmol/L (136-145) Potassium Level 4.2 mmol/L (3.5-5.1) Chloride Level 105 mmol/L (98-107) Carbon Dioxide Level 26 mmol/L (20-31) Anion Gap 10 (5-15) Blood Urea Nitrogen 13 mg/dL (9-23) Creatinine 1.30 mg/dL (0.700-1.30) Glomerular Filtration Rate Calc 70 mL/min (>90) BUN/Creatinine Ratio 10.0 (10.0-20.0) Serum Glucose 104 mg/dL (74-106) Hemoglobin A1c 5.5 % A1C (<5.7) Calcium Level 9.2 mg/dL (8.7-10.4) Magnesium Level 2.1 mg/dL (1.6-2.6) Total Bilirubin 0.4 mg/dL (0.2-1.0) Aspartate Amino Transferase (AST) 33 U/L (13-40) Alanine Aminotransferase (ALT) 40 U/L (7-40) Alkaline Phosphatase 70 U/L (46-116) Total Protein 7.4 g/dL (5.7-8.2) Albumin 4.4 g/dL (3.2-4.8) Triglycerides Level 94 mg/dL (< 150) Cholesterol Level 168 mg/dL (< 200) LDL Cholesterol 105 mg/dL (< 100) HDL Cholesterol 54 mg/dL (40-59) Thyroid Stimulating Hormone (TSH) 2.21 uIU/mL (0.55-4.78) Troponin I High Sensitivity 59 ng/L (</=54) B-Type Natriuretic Peptide 12.59 pg/mL (0-100) Other Laboratory Tests 02/12/25 05:23 Brief Hx & Hospital Course: 44-year-old male with a history of hypotension noncompliant admitted for elevated blood pressure of systolic 192. Heart rate is in the range of 50s slightly elevated troponin 62 secondary to uncontrolled hypertension seen by cardiology advised Procardia and chlorthalidone possible community-acquired right lower lobe pneumonia treated with the Rocephin and doxycycline. Cleared for discharge by Cardiology. Prescriptions for chlorthalidone Procardia for high blood pressure and azithromycin for pneumonia sent to the pharmacy. He will follow up with his primary Dr in one week Consults/Reason for consult Cardiology Operations or Procedures None Condition at Discharge: Fair Final Diagnosis/Problems List Hypertensive emergency: Blood pressure 192/131, Procardia, cardiology consult for Dr. Martinez appreciated placed on Procardia and chlorthalidone Bradycardia with heart rate of 50s, consult for Cardiology appreciated advised outpatient monitoring Slightly elevated troponin 62 secondary to uncontrolled hypertension Possible community-acquired right lower lobe pneumonia Gram-positive versus Gram-negative: Rocephin doxycycline Discharge Disposition: Home Discharge Instruct/Medications Diet: Cardiac 2g Na,low cholest Activity: Light activity Follow Up/Referral: Follow up with the primary Dr in one week Use new medications as prescribed Medications: Nifedipine Chlorthalidone Azithromycin Transmitted pharmacy Scheduled Azithromycin (Azithromycin), 1 TAB PO DAILY Chlorthalidone (Chlorthalidone), 25 MG PO DAILY Nifedipine (Nifedipine Er), 1 TAB PO DAILY 39 (Time taken for discharge summary 39 minutes) Discharge Statement: "Patient was advised to return to the ER or call 911 if any headaches, dizziness, shortness of breath, chest pain, abdominal pain, bleeding, fevers, or worsening of medical condition. Patient was counseled about treatment plan, medications, possible side effects, patientverbalized understanding. All questions were answered to the best of my ability. This discharge took greater then 30 minutes in planning, reviewing documentation, counseling the patient, and discussing with other team members." ASSESSMENT ASSESSMENT Hospital Course Uneventful Assessment Hypertensive emergency: Blood pressure 192/131, Procardia, cardiology consult for Dr. Martinez appreciated placed on Procardia and chlorthalidone Bradycardia with heart rate of 50s, consult for Cardiology appreciated advised outpatient monitoring Slightly elevated troponin 62 secondary to uncontrolled hypertension Possible community-acquired right lower lobe pneumonia Gram-positive versus Gram-negative: Rocephin doxycycline Date of Service: Feb 13, 2025 Billing Provider: RAGHAV LANCE MD Common Visit Codes: 99121-DGG/OBS DISCH DAY >30min RAGHAV LANCE MD Feb 13, 2025 08:14
[2025-02-13 09:00] VITALS: BP 158/102; PULSE 87; RESP 20; TEMP 98.4; O2SAT 99
[2025-02-13] MEDS: CHLORTHALIDONE 25 MG TAB PO SCH (09:58)
[2025-02-13] MEDS: cefTRIAXone 1GM/50ML D5W 50 ML IV SCH (09:58)
[2025-02-13 10:56] VITALS: BP 133/55; TEMP 36.9
== END 2025-02-13 12:05 | disposition home or self-care (01) | DRG 280 ==
LOC: ER 04:09 → OVERFLOW 10:02 → TELE-CENTR 22:10
PROVIDERS: ADMIT Family Medicine; ATTEND Family Medicine
DX: I21.4 Non-ST elevation (NSTEMI) myocardial infarction (principal); J15.69 Pneumonia due to other Gram-negative bacteria; J15.9 Unspecified bacterial pneumonia; I16.1 Hypertensive emergency; R00.1 Bradycardia, unspecified; E66.9 Obesity, unspecified; Z68.38 Body mass index [BMI] 38.0-38.9, adult; I10 Essential (primary) hypertension; G47.00 Insomnia, unspecified; F41.9 Anxiety disorder, unspecified; F17.210 Nicotine dependence, cigarettes, uncomplicated; Z82.49 Family history of ischemic heart disease and other diseases of the circulatory system; Z91.199 Patient's noncompliance with other medical treatment and regimen due to unspecified reason
CPT/HCPCS: 36415; 71045; 80048; 80053; 80061; 80307; 83036; 83735; 83880; 84443; 84484; 85025; 87804; 93005; 93306; 99291; G0378